=== PATIENT | male | born 1935 | race Caucasian/White ===

== ENCOUNTER → 2016-10-09 09:46 | Outpatient (CLI) | payer OTHER ==
--- NOTE | ~2016-10-09 | EC ---
PATIENT:IRENE LAWRENCE DATE OF SERVICE: 10/09/16 SEX: M MEDICAL RECORD: [id number] DATE OF : 33 LOCATION:[facility] AGE OF PATIENT: 81 ADMISSION DATE: 10/09/16 REFERRING PHYSICIAN: INTERPRETING PHYSICIAN: ESVIN SIMMONS M.D. ECHOCARDIOGRAM REPORT ECHO CHARGES 4 ECHO COMPLETE CLINICAL DIAGNOSIS: ISCHEMIC HEART DISEASE HX OF CAD/STENTS ECHOCARDIOGRAPHIC MEASUREMENTS (adult normal given) AC root (d.<3.7cm) 4.3 LV Septum d (<1.2 cm> 1.7 Valve Excursion 1.9 LV Septum (systole) 1.8 Left Atria (s.<4.0cm> 3.4 LVPW d(<1.2cm) 1.5 RV (d.<2.3cm) 3.9 LVPW (sytole) 1.6 LV diastole(<5.6CM) 4.0 MV E-F(>70mm/sec) LV systole 2.7 LVOT Diameter 2.0 MV exc.(>10mm) 1.7 Est.ejection fraction (50-75%) Pericardial Effusion N DOPPLER: LVIT A 59.0 E 32.0 LA RVSP 40 LVOT 81 AOP1/2T 935 Asc. Ao 118 RVOT 59 RA PA 140 AV Gradient Peak 5.57 AV Mean 3.04 AV Area 1.8 MV Gradient Peak 4.97 MV Mean 1.63 MV Area COMMENTS: Residential Advisor: Fitz ELAM Content Analyst:Fitz Simmons TAPE# PACS DATE OF SERVICE: 10/09/2016 REFERRING PHYSICIAN: Dr. Sanju Balbuena. INDICATION: Coronary artery disease. DESCRIPTION: Left ventricle demonstrates left ventricular hypertrophy. No wall motion abnormalities are noted. Estimated ejection fraction is 55%. Mitral valve is structurally normal. There is vysl-qf-ckcglgmr regurgitation seen. Left atrium is normal in size. The aortic valve is trileaflet. There is mild ECHOCARDIOGRAM REPORT [id number] IRENE LAWRENCE insufficiency seen, but no evidence of stenosis. Right ventricle is mildly dilated. Tricuspid valve is normal. There is mild regurgitation noted. Right atrium is normal size. There is no pericardial effusion noted. IMPRESSION: 1. Left ventricular hypertrophy with preserved ejection fraction of 55%. 2. Lkkl-fx-yzsrvbox mitral regurgitation. 3. Mild aortic insufficiency. 4. Mild tricuspid regurgitation. TRANSINT:[id number] Voice Confirmation ID: [id number] DOCUMENT ID: [id number] ESVIN SIMMONS M.D. CC: [id number] DICTATION DATE: 10/09/16 1431 DENTAL SURGEON: 10/09/16 2254 [facility] CLI 10/09/16 [facility] [address] [id number]
== END | disposition home or self-care (01) ==
LOC: D.ECHO 09:46
DX: I25.9 Chronic ischemic heart disease, unspecified (principal)